=== PATIENT | female | born 2000 | race African-American/Black ===

== ENCOUNTER 2024-05-28 13:26 | Emergency (ER) | payer OTHER ==
[~2024-05-28] VITALS: Ht 172.7 cm; Wt 90.7 kg
[2024-05-28] MEDS ORDERED: AMOCLA875 PO (15:00)
== END 2024-05-28 15:06 | disposition home or self-care (01) ==
LOC: ER 13:26
DX: S61.452A Open bite of left hand, initial encounter (principal); W54.0XXA Bitten by dog, initial encounter
CPT/HCPCS: 99283

== ENCOUNTER 2024-08-19 15:13 | Emergency (ER) | payer OTHER ==
[~2024-08-19] VITALS: Ht 172.7 cm; Wt 96.6 kg
[~2024-08-19 15:13] MED LIST: AMOCLA875 PO
[2024-08-19] MEDS ORDERED: Lidocaine/Tetracaine/Epinephr 3 ML GEL SYRINGE TOP ONE (17:00)
== END 2024-08-19 18:20 | disposition home or self-care (01) ==
LOC: ER 15:13
DX: T16.1XXA Foreign body in right ear, initial encounter (principal); W44.D4XA Magnetic metal jewelry entering into or through a natural orifice, initial encounter; Z59.89 Other problems related to housing and economic circumstances
CPT/HCPCS: 99282